=== PATIENT | male | born 1945 | race Caucasian/White ===

== ENCOUNTER 2017-03-05 09:14 | Emergency (ER) | payer MEDICARE ==
--- NOTE | 2017-03-05 10:23 | ER NURSING DOCUMENTATION ---
Nurse's Notes [facility] Name:Luciano Peres Age:71 yrs Sex:Male :1945 Arrival Date:03/05/2017 Time:09:14 Bed1 Private MD:Isaac Acevedo Diagnosis:Inguinal Hernia Presentation: 03/05 09:23 Presenting complaint: Patient states: pt states he has had a lump on the right lower st abd for the last two weeks but this am it really started to hurt. lump and pain are worst with standing and bearing down. Transition of care: Home. Notified ED Physician of Dr. العلي notified. :23 Acuity: [place] 3 st 09:23 Method Of Arrival: Private Vehicle st Triage Assessment: 09:28 General: Appears in no apparent distress, Behavior is cooperative. Pain: Complains of st pain in right inguinal area Pain currently is 4 out of 10 on a pain scale. Neuro: No deficits noted. Cardiovascular: No deficits noted. Respiratory: No deficits noted. GI: Abdomen is flat, non- distended Abd is soft and non tender X 4 quads. Reports last BM was this AM. : pt has a lump in the right inguinal area that gets bigger when he bears down. Historical: - Allergies: Lisinopril; - Home Meds: 1. medication for BP and a statin - PMHx: Hypertension; HIGH CHOLESTEROL; - PSHx: HIP SURGERY; SHOULDER SURGERY; - Tetanus: < 10 years. - Ebola Screening: : Patient denies exposure to infectious person. Patient denies travel to an Ebola-affected area in the 21 days before illness onset. . - Social history: Smoking status: Patient states former smoker of tobacco. Patient uses alcohol occasionally. Patient/guardian denies using marijuana. Screenin:30 Infectious Disease Risk None. Abuse screen: Denies threats or abuse. Denies injuries st from another. Nutritional screening: No deficits noted. Assessment: 09:30 General: pt just returned from a trip to [place].. st Vital Signs: 09:29 BP 163 / 87; Pulse 89; Resp 16; Temp 98.7; Pulse Ox 96% ; Pain 4/10; st ED Course: 09:15 Patient arrived in ED. lm3 09:16 Isaac Acevedo MD is Private Physician. lm3 09:23 Myrna Love RN is Primary Nurse. st 09:[address] 09:30 Valuables Remains with patient Patient has correct armband on for positive st identification. Placed in gown. Bed in low position. 09:41 Brent العلي MD is Attending Physician. sc 10:15 Brent Roberts MD is Referral Physician. sc Administered Medications: No medications were administered Outcome: 10:16 Discharge ordered by MD. sc 10:22 Discharged to home ambulatory. st 10:22 Condition: stable 10:22 Discharge instructions given to patient, significant other, Instructed on discharge instructions, follow up and referral plans. 10:22 Patient [address] the ED[address] st Signatures: Myrna Love RN RN st Brent العلي MD MD ak Ksenia Rodriguez lm3
--- NOTE | 2017-03-05 10:23 | ER PHYSICIAN DOCUMENTATION ---
Physician Documentation [facility] Name:Luciano Peres Age:71 yrs Sex:Male :1945 Arrival Date:03/05/2017 Time:09:14 Bed1 Private MD:Isaac Acevedo ED, Scott Disposition: 03/05/17 10:16 Discharged to Home/Self Care. Impression: Inguinal Hernia. - Condition is Good. - Discharge Instructions: HERNIA (Inguinal, Ventral, Umbil). - Medical Reconciliation form form. - Follow up: Brent Roberts MD; When: 4- 6 days; Reason: Continuance of care. - Problem is new. - Symptoms are unchanged. HPI: 03/05 10:16 This 71 yrs old Male presents to ER via Private Vehicle with complaints of sc Abdominal Pain, Lower. 10:16 The patient presents with abdominal pain in the lower abdomen. Onset: The sc symptoms/episode began/occurred 2 week(s) ago. The symptoms do not radiate. Associated signs and symptoms: none. Modifying factors: the symptoms are aggravated by jumping, pressure. Severity of pain: At its worst the pain was mild. Historical: - Allergies: Lisinopril; - Home Meds: 1. medication for BP and a statin - PMHx: Hypertension; HIGH CHOLESTEROL; - PSHx: HIP SURGERY; SHOULDER SURGERY; - Tetanus: < 10 years. - Ebola Screening: : Patient denies exposure to infectious person. Patient denies travel to an Ebola-affected area in the 21 days before illness onset. . - Social history: Smoking status: Patient states former smoker of tobacco. Patient uses alcohol occasionally. Patient/guardian denies using marijuana. ROS: 10:17 Constitutional: Negative for fever, chills, and weight loss. sc Eyes: Negative for injury, pain, redness, and discharge. ENT: Negative for injury, pain, and discharge. Neck: Negative for injury, pain, and swelling. Cardiovascular: Negative for chest pain, palpitations, and edema. Respiratory: Negative for shortness of breath, cough, wheezing, and pleuritic chest pain. Back: Negative for injury and pain. MS/Extremity: Negative for injury and deformity. Skin: Negative for injury, rash, and discoloration. 10:17 Neuro: Negative for headache, weakness, numbness, tingling, and seizure. sc 10:17 Abdomen/GI: Positive for abdominal pain, Negative for nausea, vomiting, diarrhea, constipation, abdominal cramps, abdominal distension. Exam: Constitutional: This is a well developed, well nourished patient who is awake, alert, and in no acute distress. Head/Face: Normocephalic, atraumatic. Eyes: Pupils equal round and reactive to light, extra-ocular motions intact. Lids and lashes normal. Conjunctiva and sclera are non-icteric and not injected. Cornea within normal limits. Periorbital areas with no swelling, redness, or edema. Cardiovascular: Regular rate and rhythm with a normal S1 and S2. No gallops, murmurs, or rubs. Normal PMI, no JVD. No pulse deficits. Respiratory: Lungs have equal breath sounds bilaterally, clear to auscultation and percussion. No rales, rhonchi or wheezes noted. No increased work of breathing, no retractions or nasal flaring. 10:17 Skin: Warm, dry with normal turgor. Normal color with no rashes, no lesions, and no sc evidence of cellulitis. 10:17 Abdomen/GI: Inspection: Bowel sounds: normal, Palpation: abdomen is soft and non-tender, Hernia: noted in the right femoral area, incarceration, is not appreciated, tenderness, that is mild, bowel sounds are appreciated on auscultation. Vital Signs: 09:29 BP 163 / 87; Pulse 89; Resp 16; Temp 98.7; Pulse Ox 96% ; Pain 4/10; st MDM: 09:41 Patient medically screened. sc 10:18 Differential diagnosis: hernia. Data reviewed: vital signs, nurses notes, and as a sc result, I will discharge patient. Dispensed Medications: No medications were administered Signatures: Myrna Love RN RN st Chew, Scott, MD MD pa
== END 2017-03-05 10:23 | disposition home or self-care (01) ==
LOC: ER 09:14
DX: K40.90 Unilateral inguinal hernia, without obstruction or gangrene, not specified as recurrent (principal); I10 Essential (primary) hypertension; Z79.899 Other long term (current) drug therapy
CPT/HCPCS: 99281